=== PATIENT | female | born 1930 | race Caucasian/White ===

== ENCOUNTER 2018-02-13 11:21 | Emergency (ER) | payer MEDICARE ==
[~2018-02-13] VITALS: Ht 157.5 cm; Wt 71.2 kg
[~2018-02-13 11:21] MED LIST: AMLODIPINE BESYL5 MG PO; ASPIR 8181 MG PO; CALTRATE 600 W1 EACH PO; DIOVAN HCT 1601 EAC1 PO; FUROSEMIDE40 MG PO; IRBESARTAN150 MG PO; METOPROLOL TART50 MG PO; RANITIDINE HCL300 MG PO; SUCRALFATE1 GM PO; TYLENOL WITH C1 EACH PO; VIACTIV SOFT C1 EACH PO; VITAMIN D400 UNIT PO; [UNRECOGNIZED DRUG - OTHER]
[2018-02-13] MEDS ORDERED: TRAMADOL HCL 50 MG TAB PO ONE (12:00)
--- NOTE | 2018-02-13 12:58 | Diagnostic Imaging Report ---
EXAMINATION: CHEST 2 VIEWS, RIBS LEFT W/CXR INDICATION: Spine pain. Rib fractures? COMPARISON: None FINDINGS: TUBES and LINES: None. LUNGS: Scalloping of the right hemidiaphragm. Patchy density in the left lung base suggestive of atelectasis and a small pleural effusion. No definite pneumothorax. There is no evidence of pneumonia or pulmonary edema. PLEURA: No pleural effusion or pneumothorax. HEART AND MEDIASTINUM: The cardiomediastinal silhouette is unremarkable. BONES AND SOFT TISSUES: Kyphosis centered at the lower thoracic spine. Lower thoracic vertebral bodies not well visualized due to underpenetration and osteopenia, suspect lower thoracic vertebral fractures. Retrolisthesis of upper lumbar vertebra. Degenerative changes of the glenohumeral joint bilaterally. No displaced rib fracture, however, some overlapping of the lower left-sided ribs. UPPER ABDOMEN: No free air under the diaphragm. Retrocardiac density suggestive of hiatal hernia. IMPRESSION: 1. No displaced rib fracture. Left basilar subsegmental atelectasis possibly small volume effusion. 2. Marked lower thoracic kyphosis with concern for compression fracture. Suggest further evaluation with CT chest. Signed by: Dr. Kristal Bustamante M.D. on 02/13/2018 12:55 PM
[2018-02-13] MEDS ORDERED: ULTRAM50 MG PO (14:58)
[2018-02-13 15:27] VITALS: BP 127/62
== END 2018-02-13 15:30 | disposition home or self-care (01) ==
LOC: ER 11:21
DX: M54.6 Pain in thoracic spine (principal); S23.3XXA Sprain of ligaments of thoracic spine, initial encounter; X58.XXXA Exposure to other specified factors, initial encounter; Y93.89 Activity, other specified; Y92.538 Other ambulatory health services establishments as the place of occurrence of the external cause; I10 Essential (primary) hypertension; M41.9 Scoliosis, unspecified; M81.0 Age-related osteoporosis without current pathological fracture
CPT/HCPCS: 71046; 71101; 93005; 99283

== ENCOUNTER 2020-04-01 08:45 | Emergency (ER) | payer MEDICARE ==
[~2020-04-01] VITALS: Ht 157.5 cm; Wt 71.2 kg
[~2020-04-01 08:45] MED LIST changes: +ULTRAM50 MG PO
--- OUTSIDE RECORDS SUMMARY | 2020-04-01 09:03 | XMS REPORT | Continuity of Care Document ---
Author Author [employer] LORA Cruz [employer] Address Unknown Phone Unavailable Care Team Providers Care Criminal Intelligence Analyst Name Role Phone [employer] Unavailable Un available Problems Problem Status Onset Date Classification Date Reported Comments Source Hyperlipidemia Active 10/12/2013 [facility] Hypertension Active 10/12/2013 [facility] Medications Medication Details Route Status Patient Instructions Ordering Provider Order Date Source Lisinopril 20 MG Oral Tablet (Active) [facility] Metoprolol Succinate ER 50 MG Oral Table t Extended Release 24 Hour (Active) A ctive [facility] Aspirin EC 81 MG Oral Tablet Delayed Release (Active) Active [facility] Furosemide 40 MG Oral Tablet (Active) Active [facility] Omeprazole 20 MG Oral Tablet Delayed Release (Active) Active [facility] Vitamin D TABS (Active) Active [facility] Norvasc 10 MG Oral Tablet (Ac tive) Active [facility] Metoprolol Succinate ER 50 MG Oral Table t Extended Release 24 Hour (Active) A ctive [facility] Allergies, Adverse Reactions, Alerts Substance Category Reaction Severity Reaction type Status Date Reported Comments Source Penicillins drug allergy drug allergy Active [facility] Sulfa Drugs drug allergy drug allergy Active [facility] Codeine Derivatives drug aller gy drug aller gy Active [facility] Immunizations Immunization Date Given Site Status Last Updated Comments Source Fluzone Intramuscular Injectable 03/02/2013 completed [facility] Influenza 03/20/2009 completed [facility] Pneumo (Pneumovax) completed [facility] Results No Data Provided for This Section Pathology Reports No Data Provided for This Section Diagnostic Reports No Data Provided for This Section Consultation Notes No Data Provided for This Section Discharge Summaries No Data Provided for This Section History and Physicals No Data Provided for This Section Vital Signs No Data Provided for This Section Encounters Location Location Details Encounter Type Encounter Number Reason For Visit Attending Provider ADM Date DC Date Status Source AUDIT [id number] 03/02/2013 03/03/2013 [facility] AUDIT [id number] 10/12/2013 10/12/2013 [facility] Procedures No Data Provided for This Section Assessment and Plan No Data Provided for This Section Plan of Care Plan of Care Date Source [L] Lipid Profile 03/02/2013 Routine[QLH ] CMP W/EGFR 03/02/2013 Routine 03/03/2013 [facility] Social History Social History Date Source Marital History - (Active ) Never A Smoker (Active) 10/12/2013 [facility] Family History Value Date S ource Maternal history of Coronary Artery Dise ase (V17.49); (Active) Paternal history of Hypertension (V17.49); (Active) 10/12/2013 [facility] Maternal history of Coronary Artery Dise ase (V17.49); (Active) Paternal history of Hypertension (V17.49); (Active) 03/03/2013 [facility] Advance Directives Order Name Results Value Date Source Advance Directives Advance Dir ectives No Advance Directives available. 10/12/2013 [facility] Advance Directives Advance Dir ectives No Advance Directives available. 03/03/2013 [facility] Functional Status No Data Provided for This Section
--- OUTSIDE RECORDS SUMMARY | 2020-04-01 09:03 | XMS REPORT | Continuity of Care Document ---
Author Author [facility] Organization [facility] Address [address] [place] [address] [address] [place] [address] Phone Unavailable Care Team Providers Care Panama Hat Blocker Name Role Phone Saul SARMIENTO PCP Ovidio MCGRAW Attphys Unavailable Maynor BOYD Attphys Unavailable Payers Payer Name Policy Type Policy Number Effective Date Expiration Date Helen yousif SORAYA [id number] 2016 00:00:00 [facility] Medicare A & B [id number] 1996 00:00:00 C [facility] Problems Condition Name Condition Details Condition Category Status Onset Date Resolution Date Last Treatment Date Treating Clinician Comments Source Gallstone pancreatitis Gallstone pancreatitis Problem Active [facility] Multiple gallstones Gallstones Problem Active [facility] Pancreatitis Pancreatitis Problem Active [facility] Hyperlipidemia Hype rlipidemia Active 10/12/2013 [facility] Problem Active 2013-10-12 20:31:08 [facility] Hypertension Hype rtension Active 10/12/2013 [facility] Problem Active 2013-10-12 20:31:08 Suleiman Miller Allergies, Adverse Reactions, Alerts Allergy Name Allergy Type Status Severity Reaction(s) Onset Date Inacti ve Date Treating Clinician Comments Source Sulfa (Sulfonamide Antibiotics) Allergy to Substance Active Sever e 2017-04-17 00:00:00 [facility] Penicillin Allergy to Substance Active 2016-03-28 00:00:00 [facility] Codeine Allergy to Substance Active 2016-03-26 00:00:00 [facility] Penicillins Penicillins Active [facility] Sulfa Drugs Sulfa Drugs Active [facility] Codeine Derivatives Codeine Derivatives Active [facility] Family History Family Member Diagnosis Comments Start Date Stop Date Source Unknown Family Member Family History 2013-03-03 03:00:19 2 03:00:19 [facility] Social History Social Habit Start Date Stop Date Quantity Comments Source Social History 2013-10-12 20:31:08 2013-10-12 20:31:08 [facility] Medications Ordered Medication Name Filled Medication Name Start Date Stop Da te Current Medication? Ordering Clinician Indication Dosage Frequency Signature (SIG) Comments Components Source Tramadol Hcl (Ultram) 50 Mg Tablet Tramadol Hcl (Ultram) 50 Mg Tablet 2018-02-13 00:00:00 Yes Jaiden Chaparro Finance Advisor 50 Every 6 Hours as needed for Pain [facility] Acetaminophen With Codeine (Tylenol With Codeine #3 Tablet) 1 Each Tablet, 300 Mg Oral Acetaminophen With Codeine (Tylenol With Codeine #3 Tablet) 1 Each Tablet, 300 Mg Oral 2016-03-29 00:00:00 2017-04-17 00:00:00 No Pedro Chamorro Md 300 Three Times A Day [facility] Lisinopril 20 MG Oral Tablet 2013-10-12 20:31:08 Yes (Active) [facility] Aspirin EC 81 MG Oral Tablet Delayed Release 2013-10-12 20:31:08 Yes (Active) [facility] Furosemide 40 MG Oral Tablet 2013-10-12 20:31:08 Yes (Active) [facility] Omeprazole 20 MG Oral Tablet Delayed Release 2013-10-12 20:31:08 Yes (Active) [facility] Vitamin D TABS 2013-10-12 20:31:08 Yes (Act rodolfo) [facility] Norvasc 10 MG Oral Tablet 2013-10-12 20:31:08 Yes (Active) [facility] Metoprolol Succinate ER 50 MG Oral Tablet Extended Release 2 4 Hour 2013-10-12 20:31:08 Yes (Active) [facility] Metoprolol Succinate ER 50 MG Oral Tablet Extended Release 2 4 Hour 2013-03-03 03:00:19 Yes (Active) [facility] Amlodipine Besylate 5 Mg Tablet Amlodipine Besylate 5 Mg Tablet Yes 5 Daily [facility] Aspirin (Aspir 81) 81 Mg Tablet. Aspirin (Aspir 81) 81 Mg Tablet.dr Yes 81 Daily [facility] Ca Carbonate/Vitamin D3/Vit K (Viactiv Soft Chew Table t) 1 Each Tab.chew Ca Carbonate/Vitamin D3/Vit K (Viactiv Soft Chew Tablet) 1 Each Tab.chew Yes 2 Daily [facility] Cholecalciferol (Vitamin D3) (Vitamin D) 400 Unit Caps ule Cholecalciferol (Vitamin D3) (Vitamin D) 400 Unit Capsule Yes 400 Daily [facility] Furosemide 40 Mg Tablet Furosemide 40 Mg Tablet Yes 40 Daily [facility] Irbesartan 150 Mg Tablet Irbesartan 150 Mg Tablet Yes 300 Daily [facility] Metoprolol Tartrate 50 Mg Tablet Metoprolol Tartrate 50 Mg Tablet Yes 50 Daily [facility] Nacl/Nahco3/Hyaluron Sod/Aloe (Nasogel Nasal Zap) 45 Ml [place].gl.ml Nacl/Nahco3/Hyaluron Sod/Aloe (Nasogel Nasal Zap) 45 Ml [place].gl.ml Yes [facility] Ranitidine Hcl 300 Mg Tablet Ranitidine Hcl 300 Mg Tablet Y es 600 Daily [facility] Sucralfate 1 Gm Tablet Sucralfate 1 Gm Tablet Yes 1 Twice A Day [facility] Valsartan/Hydrochlorothiazide (Diovan Hct 160-25 Mg Ta blet) 1 Each Tablet Valsartan/Hydrochlorothiazide (Diovan Hct 160-25 Mg Tablet) 1 Each Tablet Yes 1 Daily [facility] Calcium Carbonate/Vitamin D3 (Caltrate 6 00 W-D Tablet) 1 Each Tablet, 1500 Mg Oral Calcium Carbonate/Vitamin D3 (Caltrate 6 00 W-D Tablet) 1 Each Tablet, 1500 Mg Oral 2016-03-29 00:00:00 No 1500 Three Times A Da y [facility] Procedures Procedure Date / Time Performed Performing Clinician [facility] e X-ray of chest, two views 2018-02-13 00:00:00 JAIDEN CHAPARRO [facility] Plan of Care Planned Activity Planned Date Details Comments Source Future Scheduled Test 2013-03-03 03:00:19 Plan of Care [code = 1877 6-5] [facility] Encounters Start Date/Time End Date/Time Encounter Type Admission Type Attendi [facility] Care Department Encounter ID Source 2018-02-13 11:21:00 2018-02-13 15:30:00 Departed Emergency Room 1 KAILA MCGRAW [facility] [id number] [facility] 2013-10-12 15:31:08 2013-10-12 15:31:08 Outpatient DELIA LIN [id number] 2013-03-02 22:00:19 2013-03-02 22:00:19 Outpatient DELIA LIN [id number] Results Test Description Test Time Test Comments Results Result Comments Source SCR MAMM BILATERAL DANIAL CAD DIGITAL 2019-01-10 07:24:45 - SCR MAMM BILATERAL DANIAL CAD DIGITALBILATERAL DIGITAL SCREENING MAMMOGRAM 3D/2D WITH CAD: 01/09/2019CLINICAL: Asymptomatic. Digital breast tomosynthesis was performed in addition to routine CC and MLO views. Current mammographic images were evaluated by either a [employer] M-Vu or a [employer] ImageChecker CAD (computer aided detection system). Comparison is made to exams dated 01/07/2018 mammogram, 12/29 mammogram, and 12/16/2015 mammogram - [facility]. There are scattered fibroglandular tissues in both breasts. No suspicious mass, architectural distortion, malignant type calcification, or lymph node abnormality detected. Breast architecture is stable compared to prior exams.IMPRESSION: NEGATIVEThere is no mammographic evidence of malignancy. Resume annual screening mammography in one year. Carina Castillo M.D. dm/penrad:01/10/2019 07:24:45 Dishwashing Machine Repairer: Lisa MAIER, [facility] sent: BIRADS 1-2 Normal Mammogram BI-RADS: 1 Negative RIBS UNILAT W/CXR 2018-02-13 12:50:00 [place] [address] Patient Name: LORA HARRIS MR #: [id number] : 1930 Age/Sex: 87/F Req #: [id number] Adm Physician: Ordered by: JAIDEN CHAPARRO MAINTENANCE MANAGER Report #: [id number] Location: ER Room/Bed: Procedure: [id number] DX/RIBS UNILAT W/CXR Exam Date: 02/13/18 Exam Time: 1210 REPORT STATUS: Signed EXAMINATION: CHEST 2 VIEWS, RIBS LEFT W/CXR INDICATION: Spine pain. Rib fractures? COMPARISON: None FINDINGS: TUBES and LINES: None. LUNGS: Scalloping of the right hemidiaphragm. Patchy density in the left lung base suggestive of atelectasis and a small pleural effusion. No definite pneumothorax. There is no evidence of pneumonia or pulmonary edema. PLEURA: No pleural effusion or pneumothorax. HEART AND MEDIASTINUM: The cardiomediastinal silhouette is unremarkable. BONES AND SOFT TISSUES: Kyphosis centered at the lower thoracic spine. Lower thoracic vertebral bodies not well visualized due to underpenetration and osteopenia, suspect lower thoracic vertebral fractures. Retrolisthesis of upper lumbar vertebra. Degenerative changes of the glenohumeral joint bilaterally. No displaced rib fracture, however, some overlapping of the lower left-sided ribs. UPPER ABDOMEN: No free air under the diaphragm. Retrocardiac density suggestive of hiatal hernia. IMPRESSION: 1. No displaced rib fracture. Left basilar subsegmental atelectasis possibly small volume effusion. 2. Marked lower thoracic kyphosis with concern for compression fracture. Suggest further evaluation with CT chest. Signed by: Dr. Kristal Simmons M.D. on 02/13/2018 12:55 PM Dictated By: AUGUSTUS SIMMONS MD, MD 1251 Transcribed By: BISHOP on 02/13/18 1255 COPY TO: JAIDEN CHAPARRO MAINTENANCE MANAGER CHEST 2 VIEWS 2018-02-13 12:50:00 [facility] [address] [place] [address] Patient Name: LORA HARRIS MR #: [id number] : 1930 Age/Sex: 87/F Req #: [id number] Adm Physician: Ordered by: JAIDEN CHAPARRO NP Report #: [id number] Location: ER Room/Bed: Procedure: [id number] DX/CHEST 2 VIEWS Exam Date: 02/13/18 Exam Time: 1210 REPORT STATUS: Signed EXAMINATION: CHEST 2 VIEWS, RIBS LEFT W/CXR INDICATION: Spine pain. Rib fractures? COMPARISON: None FINDINGS: TUBES and LINES: None. LUNGS: Scalloping of the right hemidiaphragm. Patchy density in the left lung base suggestive of atelectasis and a small pleural effusion. No definite pneumothorax. There is no evidence of pneumonia or pulmonary edema. PLEURA: No pleural effusion or pneumothorax. HEART AND MEDIASTINUM: The cardiomediastinal silhouette is unremarkable. BONES AND SOFT TISSUES: Kyphosis centered at the lower thoracic spine. Lower thoracic vertebral bodies not well visualized due to underpenetration and osteopenia, suspect lower thoracic vertebral fractures. Retrolisthesis of upper lumbar vertebra. Degenerative changes of the glenohumeral joint bilaterally. No di splaced rib fracture, however, some overlapping of the lower left-sided ribs. UPPER ABDOMEN: No free air under the diaphragm. Retrocardiac density suggestive of hiatal hernia. IMPRESSION: 1. No displaced rib fracture. Left basilar subsegmental atelectasis possibly small volume effusion. 2. Marked lower thoracic kyphosis with concern for compression fracture. Suggest further evaluation with CT chest. Signed by: Dr. Kristal Simmons M.D. on 02/13/2018 12:55 PM Dictated By: AUGUSTUS SIMMONS MD, MD 1259 Transcribed By: BISHOP on 02/13/18 1257 COPY TO: JAIDEN CHAPARRO NP CHEST 2 VIEWS [place] [address] Patient Name: LORA HARRIS MR #: [id number] : 1930 Age/Sex: 86/F Req #: [id number] Adm Physician: Ordered by: MARYCHUY BOYD MD Report #: [id number] Location: ER Room/Bed: Procedure: [id number] DX/CHEST 2 VIEWS Exam Date: 04/17/17 Exam Time: 1430 REPORT STATUS: Signed EXAMINATION: CHEST 2 VIEWS INDICATION: COMPARISON: Abdominal series with PA chest from 03/26/2016 FINDINGS: PA and lateral views TUBES and LINES: None. LUNGS: Lungs are well inflated. Unchanged bibasilar atelectasis. There is no evidence of pneumonia or pulmonary edema. PLEURA: No pleural effusion or pneumothorax. HEART AND MEDIASTINUM: The cardiac silhouette is within normal limits. Tortuous thoracic aorta. Moderate calcifications of the aortic arch. BONES AND SOFT TISSUES: Scoliosis. There appears to be a wedge compression deformity of upper lumbar which appear unchanged. Vertebral bodies Soft tissues are unremarkable. UPPER ABDOMEN: No free air under the diaphragm. IMPRESSION: Bibasilar atelectasis unchanged. No acute abnormalities. Signed by: Dr. Jacqueline Frazier M.D. on 04/17/2017 2:58 PM Dictated By: JACQUELINE FRAZIER MD 3992 Transcribed By: BISHOP on 04/17/17 145 COPY TO: MARYCHUY BOYD MD SHOULDER LEFT COMPLETE [place] [address] Patient Name: LORA HARRIS MR #: [id number] : 1930 Age/Sex: 86/F Req #: [id number] Adm Physician: Ordered by: MARYCHUY BOYD MD Report #: [id number] Location: ER Room/Bed: Procedure: [id number] DX/SHOULDER LEFT COMPLETE Exam Date: 04/17/17 Exam Time: 1430 REPORT STATUS: Signed Left shoulder x-ray - 2 views HISTORY: COMPARISON: Abdomen series with PA chest from 03/26/2016 FINDINGS: Bones: No acute displaced fracture. Osseous alignment is within normal limits. Joints: Severe degenerative changes of the left glenohumeral joint with progressive flattening and sclerosis of the humeral head suggestive of a vascular necrosis. Soft tissues: The soft tissues appear unremarkable. IMPRESSION: No acute fractures. 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 Signed by: Dr. Jacqueline Frazier M.D. on 04/17/2017 3:00 PM Dictated By: JACQUELINE FRAZIER MD 1500 Transcribed By: BISHOP on 04/17/17 1500 COPY TO: MARYCHUY BOYD MD
[2020-04-01] MEDS ORDERED: MINERAL OIL 132 ML BTL PR ONE (09:30)
[2020-04-01] MEDS ORDERED: LACTULOSE SYRUP 20 GM/30 ML UDC PO ONE (09:30)
--- NOTE | 2020-04-01 09:44 | NUR ---
requested Mineral Oil Enema from pharmacy at this time
--- NOTE | 2020-04-01 10:23 | Emergency Department Note ---
History of Present Illnes History of Present Illness Chief Complaint: Abdominal Complaints History of Present Illness This is a 89 year old female arrived to the ED for constipation for several weeks. Patient states she had a bowel movement 4 days ago and only passed some small pellets. Chief Complaint Comment Patient in from home with complaints of constipation for the last 3 days that has caused her to have some rectal and abdominal pain. Patient reports that she has been able to have bowel movements but has had to "pull it out" herself. Patient states that she has tried milk of magnesia as well as an enema at home but has not gotten relief. Patient reports that she was recently started on a new blood pressure medication that she thinks may be causing her constipation. Historian: Patient Arrival Mode: Car Onset (how long ago): week(s) Radiation: Reports non-radiation Severity: mild Chronicity: recurrent Relieving factors: none Exacerbating factors: none Past Medical/Family History Physician Review I have reviewed the patient's past medical and family history. Any updates have been documented here. Past Medical History Recent Fever: No Clinical Suspicion of Infectio: No New/Unexplained Change in Ment: No Past Medical History: Hypertension, UTI's Past Surgical History: Hysterectomy Other Surgery: UNKNOWN Social History Physically hurt or threatened: No Other Last Tetanus: UNKNOWN Any Pre-Existing Lines (PICC,: Yes Review of Systems Review of Systems Constitutional: Reports no symptoms EENTM: Reports no symptoms Cardiovascular: Reports no symptoms Respiratory: Reports no symptoms Gastrointestinal: Reports no symptoms, Reports as per HPI, Reports constipation Genitourinary: Reports no symptoms Musculoskeletal: Reports no symptoms Integumentary: Reports no symptoms Neurological: Reports no symptoms Psychological: Reports no symptoms Endocrine: Reports no symptoms Hematological/Lymphatic: Reports no symptoms Physical Exam Related Data Allergies: Coded Allergies: Sulfa (Sulfonamide Antibiotics) (Verified Allergy, Severe, 04/17/17) Penicillins (Verified Allergy, Unknown, 03/28/16) codeine (Verified Allergy, Unknown, 03/26/16) Triage Vital Signs Vital Signs Date Time Temp Pulse Resp B/P (MAP) Pulse Ox O2 Delivery O2 Flow Rate FiO2 04/01/20 08:52 98.5 98 16 184/104 98 Room Air Vital signs reviewed: Yes Physical Exam CONSTITUTIONAL Constitutional: Present well-developed, Present well-nourished HENT HENT: Present normocephalic, Present atraumatic, Present oropharynx clear/moist, Present nose normal HENT L/R: Present left ext ear normal, Present right ext ear normal EYES Eyes: Reports PERRL, Reports conjunctivae normal NECK Neck: Present ROM normal PULMONARY Pulmonary: Present effort normal, Present breath sounds normal CARDIOVASCULAR Cardiovascular: Present regular rhythm, Present heart sounds normal, Present capillary refill normal, Present normal rate GASTROINTESTINAL Abdominal: Present soft, Present bowel sounds normal, Present tender GENITOURINARY Genitourinary: Present exam deferred SKIN Skin: Present warm, Present dry MUSCULOSKELETAL Musculoskeletal: Present ROM normal NEUROLOGICAL Neurological: Present alert, Present oriented x 3, Present no gross motor or sensory deficits PSYCHOLOGICAL Psychological: Present mood/affect normal, Present judgement normal Results Imaging Imaging results reviewed: Yes Assessment & Plan Medical Decision Making MDM 89-year-old female arrived to the ED with complaints of constipation. Male disimpaction done in the ED with a Fleet enema and patient reported immediate improvement abdominal pain. Patient has no other complaints and she was stable for discharge home. All clinical impressions and diagnoses provided are preliminary ED determinations subject to the inherent limitations of an emergent non-scheduled evaluation and possible lack of comprehensive previous records. All patient care including history taking, review of systems, physical exam, nursing notes review, medical decision making, clinical course management in the emergency department, clinical impression, disposition and plan formulation was performed on the date of service. This note was created using a voice-recognition transcribing system. Incorrect words or phrases may have been missed during proofreading. Please interpret accordingly. Assessment & Plan Final Impression: (1) Fecal impaction in rectum Depart Disposition: HOME, SELF-CARE Last Vital Signs Date Time Temp Pulse Resp B/P (MAP) Pulse Ox O2 Delivery O2 Flow Rate FiO2 04/01/20 08:52 98.5 98 16 184/104 98 Room Air Home Meds Active Scripts Docusate Sodium (COLACE) 100 Mg Cap, 100 MG PO DAILY, #30 CAP Prov:LUH NUÑEZ, DO 04/01/20 Tramadol Hcl (ULTRAM) 50 Mg Tablet, 50 MG PO Q6H PRN for PAIN, #14 TAB Prov:BALDOMERO CHAPARRO MILKING SYSTEM INSTALLER 02/13/18 Reported Medications Amlodipine Besylate (AMLODIPINE BESYLATE) 5 Mg Tablet, 5 MG PO DAILY, #30 TAB 04/17/17 Valsartan/Hydrochlorothiazide (DIOVAN HCT 160-25 MG TABLET) 1 Each Tablet, 1 TAB PO DAILY 04/17/17 Sucralfate (SUCRALFATE) 1 Gm Tablet, 1 GM PO BID, TAB 03/25/16 Cholecalciferol (Vitamin D3) (VITAMIN D) 400 Unit Capsule, 400 UNITS PO DAILY, #30 CAP 03/25/16 Ca Carbonate/Vitamin D3/Vit K (VIACTIV SOFT CHEW TABLET) 1 Each Tab.chew, 2 TAB PO DAILY 03/25/16 Ranitidine Hcl (RANITIDINE HCL) 300 Mg Tablet, 600 MG PO DAILY 03/25/16 Nacl/Nahco3/Hyaluron Sod/Aloe (NASOGEL NASAL SPRAY) 45 Ml [place].gl.ml 03/25/16 Metoprolol Tartrate (METOPROLOL TARTRATE) 50 Mg Tablet, 50 MG PO DAILY, TAB 03/25/16 Irbesartan (IRBESARTAN) 150 Mg Tablet, 300 MG PO DAILY, #30 TAB 03/25/16 Furosemide (FUROSEMIDE) 40 Mg Tablet, 40 MG PO Daily, #30 TAB 03/25/16 Aspirin (ASPIR 81) 81 Mg Tablet.dr, 81 MG PO DAILY 03/25/16 Medications in the ED Mineral Oil 132 ml ONCE ONCE [place] ; Start 04/01/20 at 09:30; Stop 04/01/20 at 09:31; Status DC Lactulose 20 gm ONCE ONCE PO Last administered on 04/01/20at 09:41; Admin Dose 20 GM; Start 04/01/20 at 09:30; Stop 04/01/20 at 09:31; Status DC [facility] NUÑEZ DO Apr 01, 2020 10:23
--- NOTE | 2020-04-01 10:41 | Diagnostic Imaging Report ---
Abdomen, 1 view. History: Constipation. Findings: Air is scattered throughout nondilated small and large bowel. Retained stool is noted within the descending and sigmoid colon. There are no masses or abnormal calcifications. 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 IMPRESSION: Non-specific bowel gas pattern. Moderate retained stool. Signed by: Jose Meeks on 04/01/2020 10:38 AM
[2020-04-01] MEDS ORDERED: COLACE100 MG PO (11:32)
== END 2020-04-01 12:00 | disposition home or self-care (01) ==
LOC: ER 09:01
DX: K56.41 Fecal impaction (principal); I10 Essential (primary) hypertension
CPT/HCPCS: 74018; 99284

== ENCOUNTER 2020-04-03 16:55 | Emergency (ER) | payer MEDICARE ==
[~2020-04-03] VITALS: Ht 157.5 cm; Wt 71.2 kg
[~2020-04-03 16:55] MED LIST changes: +COLACE100 MG PO
--- NOTE | 2020-04-03 17:25 | Emergency Department Note ---
History of Present Illnes History of Present Illness Chief Complaint: General Medicine Complaints History of Present Illness This is a 89 year old female 2 days. Seen previously on Wednesday for same issue. . Historian: Patient, Family Member Arrival Mode: Car Past Medical/Family History Physician Review I have reviewed the patient's past medical and family history. Any updates have been documented here. Past Medical History Past Medical History: Hypertension, UTI's Past Surgical History: Hysterectomy Other Surgery: UNKNOWN Other Last Tetanus: UNKNOWN Review of Systems Review of Systems Constitutional: Reports no symptoms EENTM: Reports no symptoms Cardiovascular: Reports no symptoms Respiratory: Reports no symptoms Gastrointestinal: Reports abdominal pain, Reports constipation Genitourinary: Reports no symptoms Musculoskeletal: Reports no symptoms Integumentary: Reports no symptoms Neurological: Reports no symptoms Psychological: Reports no symptoms Endocrine: Reports no symptoms Hematological/Lymphatic: Reports no symptoms Physical Exam Related Data Allergies: Coded Allergies: Sulfa (Sulfonamide Antibiotics) (Verified Allergy, Severe, 04/17/17) Penicillins (Verified Allergy, Unknown, 03/28/16) codeine (Verified Allergy, Unknown, 03/26/16) Physical Exam CONSTITUTIONAL HENT EYES NECK PULMONARY CARDIOVASCULAR GASTROINTESTINAL GENITOURINARY SKIN MUSCULOSKELETAL NEUROLOGICAL PSYCHOLOGICAL Procedures Rectal Disimpaction Time out performed: Yes Indication: fecal impaction Procedural sedation: No Technique: manual disimpaction Result: significant stool output Patient tolerated procedure: well Complications: pain, bleeding Assessment & Plan Assessment & Plan Final Impression: (1) Fecal impaction in rectum Home Meds Active Scripts Docusate Sodium (COLACE) 100 Mg Cap, 100 MG PO DAILY, #30 CAP Prov:LUH NUÑEZ DO 04/01/20 Tramadol Hcl (ULTRAM) 50 Mg Tablet, 50 MG PO Q6H PRN for PAIN, #14 TAB Prov:BALDOMERO CHAPARRO MILITARY EQUIPMENT SPECIALIST 02/13/18 Reported Medications Amlodipine Besylate (AMLODIPINE BESYLATE) 5 Mg Tablet, 5 MG PO DAILY, #30 TAB 04/17/17 Valsartan/Hydrochlorothiazide (DIOVAN HCT 160-25 MG TABLET) 1 Each Tablet, 1 TAB PO DAILY 04/17/17 Sucralfate (SUCRALFATE) 1 Gm Tablet, 1 GM PO BID, TAB 03/25/16 Cholecalciferol (Vitamin D3) (VITAMIN D) 400 Unit Capsule, 400 UNITS PO DAILY, #30 CAP 03/25/16 Ca Carbonate/Vitamin D3/Vit K (VIACTIV SOFT CHEW TABLET) 1 Each Tab.chew, 2 TAB PO DAILY 03/25/16 Ranitidine Hcl (RANITIDINE HCL) 300 Mg Tablet, 600 MG PO DAILY 03/25/16 Nacl/Nahco3/Hyaluron Sod/Aloe (NASOGEL NASAL SPRAY) 45 Ml [place].gl.ml 03/25/16 Metoprolol Tartrate (METOPROLOL TARTRATE) 50 Mg Tablet, 50 MG PO DAILY, TAB 03/25/16 Irbesartan (IRBESARTAN) 150 Mg Tablet, 300 MG PO DAILY, #30 TAB 03/25/16 Furosemide (FUROSEMIDE) 40 Mg Tablet, 40 MG PO Daily, #30 TAB 03/25/16 Aspirin (ASPIR 81) 81 Mg Tablet., 81 MG PO DAILY 03/25/16 RAMSES GILLIAM DO Apr 03, 2020 17:25
--- OUTSIDE RECORDS SUMMARY | 2020-04-03 17:48 | XMS REPORT | Continuity of Care Document ---
Author Author [facility] t Organization [facility] Address [address] [place] [address] Phone Unavailable Care Team Providers Care Traffic Rate Clerk Name Role Phone Saul SARMIENTO PCP Helen NUÑEZ Attphys Unavailable LEIGHVESOvidio Rodriguez Attphys Unavailable Maynor BOYD Attphys Unavailable Payers Payer Name Policy Type Policy Number Effective Date Expiration Date Helen yousif [facility] [id number] 2019 00:00:00 [facility] Medicare A & B [id number] 1996 00:00:00 [facility] Problems Condition Name Condition Details Condition Category Status Onset Date Resolution Date Last Treatment Date Treating Clinician Comments Source Gallstone pancreatitis Gallstone pancreatitis Problem Active [facility] Pancreatitis Pancreatitis Problem Active [facility] Multiple gallstones Problem Active [facility] Hyperlipidemia Hype rlipidemia Active 10/12/2013 [facility] Problem Active 2013-10-12 20:31:08 M emorishaggy Miller Hypertension Hype rtension Active 10/12/2013 [facility] Problem Active 2013-10-12 20:31:08 Suleiman Miller Allergies, Adverse Reactions, Alerts Allergy Name Allergy Type Status Severity Reaction(s) Onset Date Inacti ve Date Treating Clinician Comments Source Sulfa (Sulfonamide Antibiotics) Allergy to substance Active Sever e 2017-04-17 00:00:00 [facility] Penicillin Allergy to substance Active 2016-03-28 00:00:00 [facility] Codeine Allergy to substance Active 2016-03-26 00:00:00 [facility] Penicillins Penicillins Active [facility] Sulfa Drugs Sulfa Drugs Active [facility] Codeine Derivatives Codeine Derivatives Active Kandace Paul Family History Family Member Diagnosis Comments Start Date Stop Date Source Unknown Family Member Family History 2013-03-03 03:00:19 2 03:00:19 Kandace Miller Social History Social Habit Start Date Stop Date Quantity Comments Source Social History 2013-10-12 20:31:08 2013-10-12 20:31:08 Kandace Paul Sex Assigned At 1930 00:00:00 1930 00:00:00 Female [facility] Medications Ordered Medication Name Filled Medication Name Start Date Stop Da te Current Medication? Ordering Clinician Indication Dosage Frequency Signature (SIG) Comments Components Source Docusate Sodium (Colace) 100 Mg CAP Docusate Sodium (Colace) 100 Mg CAP 2020-04-01 11:32:00 Yes 100 Daily [facility] Tramadol Hcl (Ultram) 50 Mg TABLET Tramadol Hcl (Ultram) 50 Mg TABLET 2018-02-13 14:58:00 Yes 50 Every 6 Hours as needed for P ain [facility] Acetaminophen With Codeine (Tylenol With Codeine #3 Ta blet) 1 Each TABLET Acetaminophen With Codeine (Tylenol With Codeine #3 Tablet) 1 Each TABLET 2016-03-29 10:20:00 2017-04-17 00:00:00 No 300 Three Times A Day [facility] Lisinopril 20 MG Oral Tablet 2013-10-12 20:31:08 Yes (Active) Kandace Miller Aspirin EC 81 MG Oral Tablet Delayed Release 2013-10-12 20:31:08 Yes (Active) Kandace Miller Furosemide 40 MG Oral Tablet 2013-10-12 20:31:08 Yes (Active) Kandace Miller Omeprazole 20 MG Oral Tablet Delayed Release 2013-10-12 20:31:08 Yes (Active) Kandace Miller Vitamin D TABS 2013-10-12 20:31:08 Yes (Act rodolfo) Kandace Miller Norvasc 10 MG Oral Tablet 2013-10-12 20:31:08 Yes (Active) Kandace Miller Metoprolol Succinate ER 50 MG Oral Tablet Extended Release 2 4 Hour 2013-10-12 20:31:08 Yes (Active) Milli Miller Metoprolol Succinate ER 50 MG Oral Tablet Extended Release 2 4 Hour 2013-03-03 03:00:19 Yes (Active) Milli Miller Amlodipine Besylate Amlodipine Besylate Yes 5 Daily [facility] Aspirin (Aspir 81) 81 Mg TABLET. Aspirin (Aspir 81) 81 Mg TABLET. Yes 81 Daily [facility] Ca Carbonate/Vitamin D3/Vit K (Viactiv Soft Chew Table t) 1 Each TAB.CHEW Ca Carbonate/Vitamin D3/Vit K (Viactiv Soft Chew Tablet) 1 Each TAB.CHEW Yes 2 Daily [facility] Cholecalciferol (Vitamin D3) (Vitamin D) 400 Unit CAPS ULE Cholecalciferol (Vitamin D3) (Vitamin D) 400 Unit CAPSULE Yes 400 Daily [facility] Furosemide Furosemide Yes 40 Daily [facility] Irbesartan Irbesartan Yes 300 Daily [facility] Metoprolol Tartrate Metoprolol Tartrate Yes 50 Daily [facility] Nacl/Nahco3/Hyaluron Sod/Aloe (Nasogel Nasal [place]) 45 Ml [place].GL.ML Nacl/Nahco3/Hyaluron Sod/Aloe (Nasogel Nasal [place]) 45 Ml [place].GL.ML Yes [facility] Ranitidine Hcl Ranitidine Hcl Yes 600 Daily [facility] Sucralfate Sucralfate Yes 1 Twice A Day [facility] Valsartan/Hydrochlorothiazide (Diovan Hct 160-25 Mg Ta blet) 1 Each TABLET Valsartan/Hydrochlorothiazide (Diovan Hct 160-25 Mg Tablet) 1 Each TABLET Yes 1 Daily [facility] Calcium Carbonate/Vitamin D3 (Caltrate 600 W-D Tablet) 1 Each TABLET Calcium Carbonate/Vitamin D3 (Caltrate 600 W-D Tablet) 1 Each TABLET 2016-03-29 00:00:00 No 1500 Three Times A Day [facility] Vital Signs Vital Name Observation Time Observation Value Comments Source Weight 2020-04-01 08:52:00 157 [lb_av] [facility] BMI (Body Mass Index) 2020-04-01 08:52:00 28.7 kg/m2 [facility] Procedures This patient has no known procedures. Plan of Care Planned Activity Planned Date Details Comments Source Future Scheduled Test 2013-03-03 03:00:19 Plan of Care [code = 1877 6-5] [facility] - Oncology [facility] Encounters Start Date/Time End Date/Time Encounter Type Admission Type [facility] Care Department Encounter ID Source 2020-04-01 09:01:00 2020-04-01 09:01:00 Registered Emergency Room 1 LUH NUÑEZ [facility] [id number] I [facility] 2018-02-13 11:21:00 2018-02-13 15:30:00 Departed Emergency Room 1 KAILA MCGRAW [facility] [id number] [facility] 2013-10-12 15:31:08 2013-10-12 15:31:08 Outpatient [facility] [id number] 2013-03-02 22:00:19 2013-03-02 22:00:19 Outpatient [facility] [id number] Results Test Description Test Time Test Comments Results Result Comments Source ABDOMEN-1VIEW (KUB) 2020-04-01 10:37:00 [place] [address] Patient Name: LORA HARRIS MR #: [id number] : 1930 Age/Sex: 89/F Req #: [id number] Adm Physician: Ordered by: LUH NUÑEZ DO Report #: [id number] Location: ER Room/Bed: Procedure: [id number] DX/ABDOMEN-1VIEW (KUB) Exam Date: 04/01/20 Exam Time: 1008 REPORT STATUS: Signed Abdomen, 1 view. History: Constipation. Findings: Air is scattered throughout nondilated small and large bowel. Retained stool is noted within the descending and sigmoid colon. There are no masses or abnormal calcifications. 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 IMPRESSION: Non-specific bowel gas pattern. Moderate retained stool. Signed by: Jose Meeks on 04/01/2020 10:38 AM Dictated By: JOSE MEEKS MD 1038 Transcribed By: BISHOP on 04/01/20 1038 COPY TO: LUH NUÑEZ DO SCR MAMM BILATERAL DANIAL CAD DIGITAL 2019-01-10 07:24:45 - SCR MAMM BILATERAL DANIAL CAD DIGITALBILATERAL DIGITAL SCREENING MAMMOGRAM 3D/2D WITH CAD: 01/09/2019CLINICAL: Asymptomatic. Digital breast tomosynthesis was performed in addition to routine CC and MLO views. Current mammographic images were evaluated by either a CH4e M-Vu or a Mind[employer] ImageChecker CAD (computer aided detection system). Comparison is made to exams dated 01/07/2018 mammogram, 12/29 mammogram, and 12/16/2015 mammogram - [facility]. There are scattered fibroglandular tissues in both breasts. No suspicious mass, architectural distortion, malignant type calcification, or lymph node abnormality detected. Breast architecture is stable compared to prior exams.IMPRESSION: NEGATIVEThere is no mammographic evidence of malignancy. Resume annual screening mammography in one year. Carina Castillo M.D. dm/penrad:01/10/2019 07:24:45 General Accounting Manager: Lisa MAIER, [facility]: BIRADS 1-2 Normal Mammogram BI-RADS: 1 Negative RIBS UNILAT W/CXR 2018-02-13 12:50:00 [place] [address] Patient Name: LORA HARRIS MR #: [id number] : 1930 Age/Sex: 87/F [facility] #: [id number] Req #: [id number] Adm Physician: Ordered by: BALDOMERO CHAPARRO NP Report #: [id number] Location: ER Room/Bed: Procedure: [id number] DX/RIBS UNILAT W/CXR Exam Date: 02/13/18 Exam [...] PM Dictated By: AUGUSTUS SIMMONS MD, MD 1255 Transcribed By: BISHOP on 02/13/18 1255 COPY TO: BALDOMERO CHAPARRO NP CHEST 2 VIEWS 2018-02-13 12:50:00 [place] [address] Patient Name: LORA HARRIS MR #: [id number] : 1930 Age/Sex: 87/F Req #: [id number] Adm Physician: Ordered by: BALDOMERO CHAPARRO DUST BRUSH ASSEMBLER Report #: [id number] Location: ER Room/Bed: Procedure: [id number] DX/CHEST 2 VIEWS Exam Date: 02/13/18 Exam [...] PM Dictated By: AUGUSTUS SIMMONS MD, MD 125 Transcribed By: BISHOP on 02/13/18 1255 COPY TO: BALDOMERO CHAPARRO DUST BRUSH ASSEMBLER CHEST 2 VIEWS [place] [address] Patient Name: LORA HARRIS MR #: [id number] : 1930 Age/Sex: 86/F Req #: [id number] Adm Physician: Ordered by: MARYCHUY BOYD MD Report #: [id number] Location: ER Room/Bed: Procedure: [id number] DX/CHEST 2 VIEWS Exam Date: 04/17/17 Exam [...] No acute abnormalities. Signed by: Dr. Jacqueline Ernst M.D. on 04/17/2017 2:58 PM Dictated By: JACQUELINE ERNST MD 145 Transcribed By: BISHOP on 04/17/17 145 COPY TO: MARYCHUY BOYD MD SHOULDER LEFT COMPLETE [place] [address] Patient Name: LORA HARRIS MR #: [id number] : 1930 Age/Sex: 86/F Req #: [id number] Adm Physician: Ordered by: MARYCHUY BOYD MD Report #: [id number] Location: ER Room/Bed: Procedure: [id number] DX/SHOULDER LEFT COMPLETE Exam Date: 04/17/17 Exam [...] left humeral head. Signed by: Dr. Jacqueline Ernst M.D. on 04/17/2017 3:00 PM Dictated By: JACQUELINE ERNST MD 1500 Transcribed By: BISHOP on 04/17/17 1500 COPY TO: MARYCHUY BOYD MD
--- OUTSIDE RECORDS SUMMARY | 2020-04-03 17:48 | XMS REPORT | Continuity of Care Document ---
Author Author Tendr LORA [facility] Address Unknown Phone Unavailable Care Team Providers Care [employer] Teacher Name Role Phone [employer] Unavailable Un available Problems Problem Status Onset Date Classification Date Reported Comments Source Hyperlipidemia Active 10/12/2013 [facility] Hypertension Active 10/12/2013 [facility] Medications Medication Details Route Status Patient Instructions Ordering Provider Order Date Source Lisinopril 20 MG Oral Tablet (Active) Active [facility] Metoprolol Succinate ER 50 MG Oral Table t Extended Release 24 Hour (Active) A ctive [facility] Aspirin EC 81 MG Oral Tablet Delayed Release (Active) Active [facility] Furosemide 40 MG Oral Tablet (Active) Active [facility] Omeprazole 20 MG Oral Tablet Delayed Release (Active) Active [facility] Vitamin D TABS (Active) Active [facility] Norvasc 10 MG Oral Tablet (Ac tive) Active [facility] Metoprolol Succinate ER 50 MG Oral Table t Extended Release 24 Hour (Active) A ctive [facility] Allergies, Adverse Reactions, Alerts Substance Category Reaction Severity Reaction type Status Date Reported Comments Source Penicillins drug allergy drug allergy Active [facility] Sulfa Drugs drug allergy drug allergy Active [facility] Codeine Derivatives drug aller gy drug aller gy Active [facility] Immunizations Immunization Date Given Site Status Last Updated Comments Source Fluzone Intramuscular Injectable 03/02/2013 completed [facility] Influenza 03/20/2009 completed [facility] Pneumo (Pneumovax) completed [facility] Results No Data Provided for This [...] ADM Date DC Date Status Source AUDIT [id number] 03/02/2013 03/03/2013 [facility] AUDIT [id number] 10/12/2013 10/12/2013 [facility] Procedures No Data Provided for This Section Assessment and Plan No Data Provided for This Section Plan of Care Plan of Care Date Source [L] Lipid Profile 03/02/2013 Routine[QLH ] CMP W/EGFR 03/02/2013 Routine 03/03/2013 [facility] Social History Social History Date Source Marital History - (Active ) Never A Smoker (Active) 10/12/2013 [facility] Family History Value Date S ource Maternal history of Coronary Artery Dise ase (V17.49); (Active) Paternal history of Hypertension (V17.49); (Active) 10/12/2013 [facility] Maternal history of Coronary Artery Dise ase (V17.49); (Active) Paternal history of Hypertension (V17.49); (Active) 03/03/2013 [facility] Advance Directives Order Name Results Value Date Source Advance Directives Advance Dir ectives No Advance Directives available. 10/12/2013 [facility] Advance Directives Advance Dir ectives No Advance Directives available. 03/03/2013 [facility] Functional Status No Data Provided for This Section
[2020-04-03 18:17] VITALS: BP 131/63
== END 2020-04-03 18:19 | disposition home or self-care (01) ==
LOC: ER 17:25
DX: K56.41 Fecal impaction (principal); I10 Essential (primary) hypertension
CPT/HCPCS: 99284